=== PATIENT | female | born 1945 | race Hispanic/Latino ===

== ENCOUNTER 2016-10-22 09:03 | Outpatient (CLI) | payer MEDICARE ==
[2016-10-22 13:35] LABS: #Eosinphils 0.1 thou/uL (0.0-0.7); #Lymphocytes 1.9 thou/uL (1.20-3.40); #Monocytes 0.6 thou/uL (0.11-0.59); #Neutrophils 4.1 thou/uL (1.40-6.50); %Basophils 0.7 % (0.0-1.0); %Eosinophils 1.2 % (0.0-10.0); %Lymphocytes 28.9 % (21.0-51.0); %Monocytes 8.3 % (0.0-10.0); %Neutrophils 60.9 % (42.0-75.0); Hemoglobin 12.7 g/dL (12.0-16.0); Mean Corpuscular HGB CONC 32.9 g/dL (32.0-36.0); Mean Corpuscular Hemoglobin 28.4 pg (27.0-31.0); Mean Corpuscular Volume 86.4 fl (81.0-99.0); Mean Platelet Volume 7.7 fL (7.4-10.4); Platelet Count 231 thou/uL (130-400); RBC Distribution Width 13.3 % (11.5-14.5); Red Blood Cell (RBC) Count 4.49 mill/uL (4.20-5.40); White Blood Cell (WBC) Count 6.7 thou/uL (4.8-10.8)
[2016-10-22 13:59] LABS: ALT (SGPT) 122 U/L (0-55); AST (SGOT) 53 U/L (5-34); Alkaline Phosphatase 133 U/L (40-150); Anion Gap 16 mmol/L (10-20); BUN (Urea Nitrogen) 20 mg/dL (9.8-20.1); Bilirubin, Total 0.6 mg/dL (0.2-1.2); Calc. Creatinine Clearance 0 mL/min (70-130); Calcium 9.1 mg/dL (7.8-10.44); Carbon Dioxide 27 mmol/L (23-31); Cardiac Risk 3.4 (Less than 4.5); Chloride 103 mmol/L (98-107); Cholesterol 170 mg/dL (< 200 Desired); Estimated GFR-MDRD 70; Globulin 2.8 g/dL (2.4-3.5); Glucose 121 mg/dL (80-115); HDL Cholesterol 50 mg/dL (>60 Neg Risk); LDL Cholesterol, Calculated 96 mg/dL; Potassium 3.5 mmol/L (3.5-5.1); Protein, Total 6.8 g/dL (5.8-8.1); Sodium 142 mmol/L (136-145); Triglycerides 118 mg/dL (Less than 150)
[2016-10-22 14:01] LABS: Blood, Urine Negative (Negative); Clarity Clear (Clear); Glucose, Urine (Dipstick) Negative (Negative); Leukocyte Negative (Negative); Nitrite Negative (Negative); Protein, Urine (Dipstick) Trace mg/dL (Neg-Trace); Urobilinogen 0.2 mg/dL (0.2-1.0)
[2016-10-22 14:28] LABS: Bilirubin Negative (Negative); Icto Negative (Negative)
== END 2016-10-22 09:04 | disposition home or self-care (01) ==
LOC: NAVSJIPCSP 09:03
PROVIDERS: ATTEND Internal Medicine
DX: E78.5 Hyperlipidemia, unspecified (principal); I11.9 Hypertensive heart disease without heart failure; Z79.899 Other long term (current) drug therapy
CPT/HCPCS: 36415; 80053; 80061; 81003; 85025

== ENCOUNTER 2017-01-01 08:08 | Outpatient (CLI) | payer MEDICARE ==
[2017-01-01 12:41] LABS: ALT (SGPT) 8 U/L (8-55); AST (SGOT) 17 U/L (5-34); Albumin 3.5 g/dL (3.4-4.8); Alkaline Phosphatase 73 U/L (40-150); Anion Gap 15 mmol/L (10-20); BUN (Urea Nitrogen) 12 mg/dL (9.8-20.1); Bilirubin, Total 0.7 mg/dL (0.2-1.2); Calc. Creatinine Clearance 0 mL/min (70-130); Carbon Dioxide 26 mmol/L (23-31); Cardiac Risk 2.9 (Less than 4.5); Chloride 100 mmol/L (98-107); Cholesterol 120 mg/dl (< 200 Desired); Estimated GFR-MDRD 82; Globulin 3.4 g/dL (2.4-3.5); Glucose 144 mg/dL (80-115); HDL Cholesterol 42 mg/dL (>60 Neg Risk); LDL Cholesterol, Calculated 51 mg/dL; Potassium 3.1 mmol/L (3.5-5.1); Protein, Total 6.9 g/dL (6.0-8.3); Sodium 138 mmol/L (136-145); Triglycerides 137 mg/dL (Less than 150)
== END 2017-01-01 08:09 | disposition home or self-care (01) ==
LOC: NAVSJIPCSP 08:08
PROVIDERS: ATTEND Internal Medicine
DX: E78.5 Hyperlipidemia, unspecified (principal); I11.9 Hypertensive heart disease without heart failure
CPT/HCPCS: 36415; 80053; 80061

== ENCOUNTER 2018-01-19 08:43 | Outpatient (CLI) | payer MEDICARE ==
[2018-01-19] MEDS ORDERED: Iodixanol 320 MG/ML (100 ML BOT) ONE (09:00)
[2018-01-19 09:26] LABS: ALT (SGPT) 14 U/L (8-55); AST (SGOT) 17 U/L (5-34); Alkaline Phosphatase 56 U/L (40-150); Anion Gap 15 mmol/L (10-20); BUN (Urea Nitrogen) 24 mg/dL (9.8-20.1); Bilirubin, Total 0.5 mg/dL (0.2-1.2); Calc. Creatinine Clearance 0 mL/min (70-130); Calcium 9.1 mg/dL (7.8-10.44); Carbon Dioxide 25 mmol/L (23-31); Chloride 104 mmol/L (98-107); Estimated GFR-MDRD 70; Globulin 3.3 g/dL (2.4-3.5); Glucose 153 mg/dL (80-115); Potassium 3.5 mmol/L (3.5-5.1); Protein, Total 7.3 g/dL (6.0-8.3); Sodium 140 mmol/L (136-145)
--- NOTE | 2018-01-19 10:37 | RAD ---
2 VIEWS CHEST: Date: 01/19/18 COMPARISON: 04/21/17. HISTORY: Renal carcinoma. FINDINGS: Two views of the chest show normal sized cardiomediastinal silhouette. There is no evidence of consol idation, mass, or pleural effusion. The bones are unremarkable. IMPRESSION: No evidence of acute cardiopulmonary disease. POS: [facility]
--- NOTE | 2018-01-19 10:53 | CT ---
CT ABDOMEN AND PELVIS WITHOUT AND WITH CONTRAST: Date: 01/19/18 COMPARISON: 02/03/17. CT chest/abdomen/pelvis 11/23/16. HISTORY: History of renal cell carcinoma status post partial nephrectomy of the right kidney. TECHNIQUE: Multiple contiguous axial images were obtained in a CT of the abdomen and pelvis without and with IV contrast. Postcontrast images were obtained in nephrographic and excretory phases. Coronal reformats were performed. FINDINGS: Postsurgical changes are seen along the lower pole of the right kidney. The previously seen enhancing mass is no longer present. No renal lesion is seen on either side. The gallbladder has been removed. Calcifications in the liver and spleen are likely from prior granulomatous disease. The adrenal glan ds and pancreas are unremarkable. No free air, free fluid, or stranding changes are seen in the abdomen or pelvis. Scattered diverticul a are seen in the colon. The small bowel and appendix are unremarkable. No abdominal or pelvic lymphadenopathy are seen. There is a mass in the uterus measuring approximatel y 4.5 cm in size, which likely represents a fibroid. Degenerative changes are seen in the spine. No suspicious osseous lesions are identified. There are t wo 4.0 mm nodules in the right lung. A peripheral nodule is seen on image 18 of 99, which was seen on the prior examination. This nodules remains stable compared to the CT of the chest from 11/25/16. IMPRESSION: 1. Postsurgical changes from right partial nephrectomy without evidence for recurrent or metastatic disease. 2. Diverticulosis. 3. Uterine fibroid. POS: [facility]
[2018-01-19 12:49] LABS: Bilirubin Negative (Negative); Blood, Urine Negative (Negative); Clarity Clear (Clear); Glucose, Urine (Dipstick) Negative (Negative); Leukocyte Negative (Negative); Nitrite Negative (Negative); Protein, Urine (Dipstick) Negative (Neg-Trace); Specific Gravity, Urine 1.015 (1.005-1.030); Urobilinogen 0.2 mg/dL (0.2-1.0)
[2018-01-19 13:25] LABS: Bacteria/HPF Rare-Few HPF (None Seen); Other Microscopic Description NO; RBC/HPF 0-3 HPF (0-3); Squamous Epithelial None Seen HPF (0-3); WBC/HPF None Seen HPF (0-3)
== END 2018-01-19 08:44 | disposition home or self-care (01) ==
LOC: NAV CT 08:43
PROVIDERS: ATTEND Urology
DX: C64.2 Malignant neoplasm of left kidney, except renal pelvis (principal); K57.90 Diverticulosis of intestine, part unspecified, without perforation or abscess without bleeding; D25.9 Leiomyoma of uterus, unspecified; Z90.5 Acquired absence of kidney
CPT/HCPCS: 36415; 71046; 74178; 80053; 81001; Q9967

== ENCOUNTER 2019-01-12 09:06 | Outpatient (CLI) | payer MEDICARE ==
[~2019-01-12 09:06] MED LIST: Iopamidol 370 76% 100 ML VIAL ONE
--- NOTE | 2019-01-12 11:00 | RAD ---
RADIOGRAPH CHEST 2 VIEW: DATE: 01/12/2019 HISTORY: 73-year-old female with renal cell cancer carcinoma FINDINGS: The thoracic aorta is tortuous and ectatic. There is no evidence of airspace density, pulmonary edema , or pneumothorax. There is no cardiomegaly or pleural effusion. No suspicious pulmonary mass. IMPRESSION: 1) No active cardiopulmonary disease.. 2) ectasia of thoracic aorta.
--- NOTE | 2019-01-12 12:00 | CT ---
CT the abdomen with and without IV contrast INDICATION: History of renal cell carcinoma; follow-up examination Comparison CT the abdomen and pelvis with and without contrast dated January 19, 2018 FINDINGS: Partial nephrectomy lateral inferior pole of the right kidney is stable. No recurrent soft tissue mas s is evident within this region. No new solid renal lesion or gross urothelial lesion is evident within the opacified proximal renal collecting systems. Mild central alonso mesentery is stable. 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 The gallbladder surgically absent. No focal hepatic lesion is evident. There are calcified granuloma within the liver and spleen. There are mild vascular calcifications of the abdominal aorta. There are scattered colonic diverticula. No suspicious osseous abnormality is grossly evident. IMPRESSION: No recurrent renal mass or evidence of regional metastatic disease within the abdomen.
== END 2019-01-12 09:07 | disposition home or self-care (01) ==
LOC: NAV CT 09:06
PROVIDERS: ATTEND Urology
DX: Z01.818 Encounter for other preprocedural examination (principal); C64.2 Malignant neoplasm of left kidney, except renal pelvis
CPT/HCPCS: 36415; 71046; 74170; 82565; Q9967